=== PATIENT | female | born 1995 | race Hispanic/Latino ===

== ENCOUNTER 2019-03-11 17:58 | Inpatient (IN) | payer OTHER ==
[2019-03-11] MEDS ORDERED: Ibuprofen 800 MG TAB PO PRN (22:55)
[2019-03-11] MEDS ORDERED: HYDROcodone/Acetaminophen 5/325 mg Tablet PO PRN (22:55)
[2019-03-11] MEDS ORDERED: Diphenoxylate HCl/Atropine Tablet PO PRN (22:55)
[2019-03-11] MEDS ORDERED: Lidocaine 1% (PF) 30 ML VIAL SC PRN (22:55)
[2019-03-11] MEDS ORDERED: Ondansetron PF 4 MG/2 ML Vial IVP PRN (22:55)
[2019-03-11] MEDS ORDERED: hydrALAZINE 20 MG/ML VIAL SLOW IVP PRN (22:55)
[2019-03-11] MEDS ORDERED: Carboprost 250 MCG/ML AMP IM PRN (22:55)
[2019-03-11] MEDS ORDERED: Butorphanol Tartrate 1 MG/ML VIAL SLOW IVP PRN (22:55)
[2019-03-11] MEDS ORDERED: Promethazine HCl 25 MG/ML VIAL IM PRN (22:55)
[2019-03-11] MEDS ORDERED: Misoprostol 200 MCG TAB PR PRN (22:55)
[2019-03-11] MEDS ORDERED: Methylergonovine 0.2 MG/ML VIAL IM PRN (22:55)
[2019-03-11] MEDS: Lactated Ringer's 1,000 ML IV SCH (23:15)
[2019-03-11] MEDS ORDERED: NS w/ Oxytocin 10 units 500 ML IV SCH ×2 (23:15)
[2019-03-11] MEDS ORDERED: Penicillin G Potassium 5 MILL.UNITS in Sodium Chloride 0.9% 100 ML IVPB SCH (23:15)
[2019-03-11 23:26] LABS: Hemoglobin 11.9 g/dL (12.0-16.0); Mean Corpuscular HGB CONC 32.7 g/dL (32.0-36.0); Mean Corpuscular Hemoglobin 27.2 pg (27.0-31.0); Mean Corpuscular Volume 83.2 fL (78.0-98.0); Mean Platelet Volume 6.6 fL (7.4-10.4); Platelet Count 249 thou/uL (130-400); RBC Distribution Width 14.8 % (11.5-14.5); Red Blood Cell (RBC) Count 4.38 mill/uL (4.20-5.40); White Blood Cell (WBC) Count 10.8 thou/uL (4.8-10.8)
[2019-03-12 00:03] LABS: Syphilis Antibody Nonreactive (Nonreactive); Syphilis Antibody Index 0.03 S/CO (<1.00 Non-Reactive)
[2019-03-12 01:46] LABS: HBSAg Index 0.25 S/CO (0-0.99); Hep B Surf Ag Non-Reactive S/CO (NonReactive)
[2019-03-12] MEDS: Lactated Ringer's 1,000 ML IV SCH ×2 (03:00→07:32)
[2019-03-12] MEDS ORDERED: Penicillin G 2.5 MILL.units 2.5 MILL.UNITS in Premix Bag 1 BAG IVPB SCH (03:00)
[2019-03-12] MEDS ORDERED: Fentanyl 4 mcg/Bup 0.1% Cadd 100 ML ONE (05:27)
[2019-03-12] MEDS ORDERED: Ondansetron PF 4 MG/2 ML Vial IVP PRN ×2 (06:03→12:03)
[2019-03-12] MEDS ORDERED: Acetaminophen 325 MG TAB PO PRN (06:03)
[2019-03-12] MEDS ORDERED: diphenhydrAMINE 50 MG/ML VIAL IVP PRN (06:03)
[2019-03-12] MEDS ORDERED: ePHEDrine/0.9% NaCl/PF SYRINGE 50 mg/10 ml SLOW IVP PRN (06:03)
[2019-03-12] MEDS ORDERED: Naloxone HCl 0.4 mg/ml Vial IVP PRN ×2 (06:03)
[2019-03-12] MEDS ORDERED: Promethazine HCl 25 MG/ML VIAL IM PRN ×2 (06:03→12:03)
[2019-03-12] MEDS ORDERED: Lactated Ringer's 500 ML IV PRN (06:03)
[2019-03-12] MEDS ORDERED: Fentanyl 4 mcg/Bupivacaine 0.1% Cassette 100 ML EPIDURAL SCH (06:15)
[2019-03-12] MEDS ORDERED: Communication Order-Pharmacy FS SCH (06:15)
[2019-03-12] MEDS ORDERED: ePHEDrine/0.9% NaCl/PF SYRINGE 50 mg/10 ml ONE (09:00)
[2019-03-12] MEDS: NS / Oxytocin 40 units/1000ml 1,000 ML IV PRN ×2 (09:10→10:32)
[2019-03-12] MEDS ORDERED: NS / Oxytocin 40 units/1000ml 1,000 ML IV SCH (12:03)
[2019-03-12] MEDS ORDERED: Adacel (T-DAP) 0.5 ML SYRINGE IM ONE (12:03)
[2019-03-12] MEDS ORDERED: diphenhydrAMINE 25 MG CAP PO PRN (12:03)
[2019-03-12] MEDS ORDERED: Benzocaine-Menthol 82.5 ML CAN TOP PRN (12:03)
[2019-03-12] MEDS ORDERED: HYDROcodone/Acetaminophen 5/325 mg Tablet PO PRN (12:03)
[2019-03-12] MEDS ORDERED: Lanolin Ointment 7 GM TUBE TOP PRN (12:03)
[2019-03-12] MEDS ORDERED: Bisacodyl 10 MG SUPP PR PRN (12:03)
[2019-03-12] MEDS ORDERED: Milk Of Magnesia 30 ML UDCUP PO PRN (12:03)
[2019-03-12] MEDS ORDERED: hydrALAZINE 20 MG/ML VIAL SLOW IVP PRN (12:03)
[2019-03-12] MEDS: Misoprostol 100 MCG TAB PO SCH ×2 (12:39→17:58)
[2019-03-12] MEDS: Ibuprofen 800 MG TAB PO SCH ×2 (17:26→19:40)
[2019-03-12] MEDS: Ferrous Sulfate 325 MG TAB PO SCH (17:59)
[2019-03-12] MEDS: Docusate Calcium (SURFAK) 240 MG CAP PO SCH (22:10)
[2019-03-13] MEDS: HYDROcodone/Acetaminophen 5/325 mg Tablet PO PRN ×2 (02:44→19:50)
[2019-03-13] MEDS: Ibuprofen 800 MG TAB PO SCH ×3 (03:59→21:10)
[2019-03-13 06:44] LABS: Mean Corpuscular HGB CONC 33.6 g/dL (32.0-36.0); Mean Corpuscular Hemoglobin 28.6 pg (27.0-31.0); Mean Corpuscular Volume 85.2 fL (78.0-98.0); Mean Platelet Volume 6.7 fL (7.4-10.4); Platelet Count 205 thou/uL (130-400); RBC Distribution Width 14.8 % (11.5-14.5); Red Blood Cell (RBC) Count 3.84 mill/uL (4.20-5.40); White Blood Cell (WBC) Count 10.2 thou/uL (4.8-10.8)
[2019-03-13] MEDS: Docusate Calcium (SURFAK) 240 MG CAP PO SCH ×2 (08:48→19:50)
[2019-03-13] MEDS: Prenatal Vitamin 1 TAB PO SCH (08:48)
[2019-03-13] MEDS: Ferrous Sulfate 325 MG TAB PO SCH ×2 (09:18→17:55)
[2019-03-14] MEDS: Ibuprofen 800 MG TAB PO SCH ×2 (06:02→13:41)
[2019-03-14 08:19] VITALS: BP 104/62; TEMP 98.5
[2019-03-14] MEDS: Ferrous Sulfate 325 MG TAB PO SCH (09:41)
[2019-03-14] MEDS: Docusate Calcium (SURFAK) 240 MG CAP PO SCH (09:41)
[2019-03-14] MEDS: Prenatal Vitamin 1 TAB PO SCH (09:41)
== END 2019-03-14 17:45 | disposition home or self-care (01) | DRG 807 ==
LOC: L&D 22:29 → 3SW 03-12 12:21
PROVIDERS: ADMIT Family Medicine; ATTEND Family Medicine
PROC: 10907ZC Drainage of Amniotic Fluid, Therapeutic from Products of Conception, Via Natural or Artificial Opening (ICD-10-PCS; principal; 2019-03-11)
PROC: 10E0XZZ Delivery of Products of Conception, External Approach (ICD-10-PCS; 2019-03-11)
PROC: 3E033VJ Introduction of Other Hormone into Peripheral Vein, Percutaneous Approach (ICD-10-PCS; 2019-03-11)
PROC: 0HQ9XZZ Repair Perineum Skin, External Approach (ICD-10-PCS; 2019-03-11)
DX: O99.824 Streptococcus B carrier state complicating childbirth (principal); Z37.0 Single live birth; Z3A.39 39 weeks gestation of pregnancy; O70.0 First degree perineal laceration during delivery
CPT/HCPCS: 36415; 51702; 85027; 86780; 86850; 86900; 86901; 87340; J2405; J2540; J2590; J3490; Q0163